=== PATIENT | male | born 1980 | race Caucasian/White ===

== ENCOUNTER 2017-11-18 21:37 | Inpatient (IN) | payer SELFPAY ==
[~2017-11-18 21:37] MED LIST: ISOVUE-370 76%-LOCM 1 ML ONE
[2017-11-18] MEDS ORDERED: Ibuprofen 200 MG TAB ONE (21:47)
[2017-11-18] MEDS ORDERED: Clindamycin/D5W 900 mg/50 ml Premix Bag ONE (22:24)
--- NOTE | 2017-11-18 22:41 | CT ---
CT OF THE NECK WITH IV CONTRAST 11/18/17 COMPARISON: None. HISTORY: Oral infection, tongue swelling, dysphagia, sore throat. TECHNIQUE: Serial axial CT imaging obtained at 2.5 mm intervals from the skull base through the lung apices with IV contrast. Coronal and sagittal reformatted imaging obtained. FINDINGS: The visualized lung apices are unremarkable. The retroantral fat and the parapharyngeal fat appears clear bilaterally. The parotid and submandibul ar glands appear unremarkable as well. The tonsillar pillars appear grossly unremarkable. There is mild enlargement of the lingual tonsils. The epiglottis and pre-epiglottic fat appears unremarkable. No evidence for a tonsillar/peritonsillar abscess. There is mild soft tissue prominence in the glossotonsillar sulcus on the right with no dis crete mass lesion or fluid collection. This could be related to a degree of edema in the right glosso tonsillar sulcus. Clinical correlation is required. The thyroid gland, thyroid cartilage, hyoid bone, cricoid cartilage, and level of the glottis appears unremarkable. Imaged lung apices are unremarkabl e. The vascular structures of the neck appear patent. Multiple mildly prominent lymph nodes are seen within level IIA and level V bilaterally, which may be reactive in nature. Osseous structures demonst rate no acute findings. IMPRESSION: Mild soft tissue prominence in the right glossotonsillar sulcus as detailed above. No evidence for ab scess. Mild beto prominence within the neck bilaterally is presumably reactive in nature and there i s prominence of the lingual tonsillar tissues, which may be reactive as well. Followup direct visuali zation in the region of the right glossotonsillar sulcus and/or followup imaging of the neck with CT suggested if symptoms persist. POS: [facility]
--- NOTE | 2017-11-19 00:13 | PDOC.FPRHP ---
- History of Present Illness Chief Complaint: sore throat History of Present Illness: 37 yo M w/o significant PMH presents for evaluation of sore throat and difficulty swallowing. Pt reports symptoms have been present for approx 1-2 days. Also complains of fever. Denies sob, difficulty breathing, trismus. Does report some tongue swelling. Pt had a CT performed in the ER for concern of vesta angina which was negative. He was given decadron, clinda and vanc omycin with some relief of symptoms. On evaluation the pt was sleeping and tolerating secretions without any evidence of respiratory compromise. ED Course: clinda, vancomycin - Allergies/Adverse Reactions Allergies Allergy/AdvReac Type Severity Reaction Status Date / Time No Known Allergies Allergy Unverified 11/19/17 01:15 - Home Medications Medication Instructions Recorded Confirmed Type No Known [No Known] 11/19/17 11/19/17 History - History PMHx:None PSHx: None FHx: Cancer, "fluid on her lungs" Social: 1/2 PPD smoker since age 16 - Review of Systems General: reports: fever/chills Eyes: denies: vision changes ENT: denies: nasal congestion, rhinorrhea Respiratory: denies: cough, congestion, shortness of breath Cardiovascular: denies: chest pain, palpitation Gastrointestinal: denies: nausea, vomiting, diarrhea, constipation, abdominal pain Skin: denies: rashes Musculoskeletal: denies: pain, tenderness, arthritis/arthralgias Neurological: denies: numbness, syncope - Vital signs BP: 126/78 HR: 97 RR: 20 Tmax: 102.7 Pox: 98% on RA Wt: 92Kg - Physical Exam Constitutional: NAD HEENT: normocephalic and atraumatic, PERRLA, EOMI, MMM, good dention, other ( edematous tongue worse on right, conjunctival icterus) Neck: supple, FROM, trachea midline, no JVD, other (cervical adenopathy) Heart: RRR, normal S1/S2, no murmurs/rubs/gallops, pulses present, no edema Lungs: CTAB, no respiratory distress, good air movement, no rales/rhonchi Abdomen: soft, non-tender, bowel sounds present, no masses/distention Musculoskeletal: normal structure, normal tone Neurological: no focal deficit Skin: no rash/lesions, capillary refill <2 seconds Heme/Lymphatic: no unusual bruising or bleeding, no petechia FMR H&P: Results - Labs Result Diagrams: 11/19/17 04:59 11/19/17 04:59 - Radiology Interpretation CT scan - head Status: report reviewed by me (glossotonsillar crypt inflammation w/o evidence of abscess) Chest x-ray Status: report reviewed by me (NAD) FMR H&P: A/P - Problem List (1) Sepsis Current Visit: Yes Status: Acute Code(s): A41.9 - SEPSIS, UNSPECIFIED ORGANISM (2) Transaminitis Current Visit: Yes Status: Acute Code(s): R74.0 - NONSPEC ELEV OF LEVELS OF TRANSAMNS & LACTIC ACID DEHYDRGNSE (3) CAIO (acute kidney injury) Current Visit: Yes Status: Acute Code(s): N17.9 - ACUTE KIDNEY FAILURE, UNSPECIFIED (4) Microcytic anemia Current Visit: Yes Status: Acute Code(s): D50.9 - IRON DEFICIENCY ANEMIA, UNSPECIFIED - Plan 1. Sepsis 2/2 Acute pharyngitis (bacterial vs viral) - CT neck negative for Vesta's angina - Will start Vanc and Zosyn for imperic coverage - Throat culture pending - REGINALD BOUCHERL - LR @ [facility] w/ strict I/O's - PRN tyelnol for fever control 2. Elevated LFT's - Concern for underlying Hepatitis vs steatosis w/ jaundice noted on exam - Will obtain RUQ-U/S for further eval - Check Hep C, Hep B, RPR, and HIV 3. Pre-renal CAIO - Unsure if pt's baseline but ratio >10 for BUN/Cr - Will give IVF and repeat BMP in the AM 4. Microcytic Anemia - Will check iron studies, FOBT, and obtain retic count, haptoglobin, and peripheral smear Disposition/LOS: stable, >/= 2 days FMR H&P: Upper Level - Pertinent history 37 y/o M w/ no sig. PMHx presents for evaluation of tongue swelling and throat pain over the past 1-2 days. Reports that his throat started hurting yesterday, and he noticed that his tongue felt like it was swelling. Associated w/ Temp to 102 degF and dysphagia. No prior episodes of similar sxs. Reports that it feels like the swelling has gone down a bit since he got steroids at the outside ER. Denies any CP, SOB at this time. CT soft tissue neck obtained in ER showing likely mild nodular prominences within the neck bilaterally likely reactive in nature w/ prominance of the lingual tonsillar tissues. - Pertinent findings Vital Signs BP 107/69 HR 77 RR 16 O2sat 99 RA Temp 97.6 DegF Labs WBC 19.6 Hgb 10.9 MCV 63.1 Plt 142 BUN [address] soft-tissue neck as noted in HPI PE: Gen: Resting in bed comfortably in NAD HEENT: Mallm-matt 4, shotty anterior cervical adenopathy. Slightly yellow discoloration noted r-subligual area Cards: RRR, no murmur Pulm: CTA-B/l no wheezes or rales Abd: Soft, NTTP BSx4 Neuro: Moves all 4 ext Skin: Diffuse jaundiced appearing w/ noted tatoos on UE's - Plan Date/Time: 11/19/17 0013 I, B. Reji Yun MD, have evaluated this patient and agree with findings/plan as outlined by management internship resident. Pertinent changes/additions are listed here. 37 y/o M w/ 1. Sepsis 2/2 Acute pharyngitis (bacterial vs viral) - CT neck negative for Vesta's angina - Will start Vanc and Zosyn for imperic coverage - Throat culture pending - LA WNL - LR @ [facility] w/ strict I/O's - PRN tyelnol for fever control 2. Elevated LFT's - Concern for underlying Hepatitis vs steatosis w/ jaundice noted on exam - Will obtain RUQ-U/S for further eval - Check Hep C, Hep B, RPR, and HIV 3. Pre-renal CAIO - Unsure if pt's baseline but ratio >10 for BUN/Cr - Will give IVF and repeat BMP in the AM 4. Microcytic Anemia - Will check iron studies, FOBT, and obtain retic count, haptoglobin, and peripheral smear Attending Addendum - Attending Addendum Date/Time: 11/19/17 1056 I personally evaluated the patient and discussed the management with Dr. Saleh. I agree with the History, Examination, Assessment and Plan documented above with any addition or exceptions noted below.
[2017-11-19 01:19] VITALS: BMI 27.3
[2017-11-19] MEDS ORDERED: Acetaminophen 325 MG TAB PO PRN (01:24)
[2017-11-19] MEDS ORDERED: Ondansetron HCl/PF 4 MG/2 ML Vial IVP PRN (01:24)
[2017-11-19] MEDS ORDERED: Ondansetron ODT 4 MG TAB SL PRN (01:24)
[2017-11-19] MEDS ORDERED: Calcium Carbonate 500 MG ChewTAB PO PRN (02:32)
[2017-11-19] MEDS ORDERED: Sodium Chloride 0.9% 1,000 ML IV SCH (02:45)
[2017-11-19] MEDS: Lactated Ringer's 1,000 ML IV SCH ×3 (04:33→22:02)
[2017-11-19 05:29] LABS: #Basophils 0.3 thou/uL (0.0-0.2); #Lymphocytes 1.6 thou/uL (1.20-3.40); #Monocytes 0.5 thou/uL (0.11-0.59); #Neutrophils 9.6 thou/uL (1.40-6.50); %Basophils 2.9 % (0.0-1.0); %Eosinophils 0.1 % (0.0-10.0); %Monocytes 3.9 % (0.0-10.0); %Neutrophils 80.1 % (42.0-75.0); Hemoglobin 10.7 g/dL (14.0-18.0); Mean Corpuscular HGB CONC 32.7 g/dL (32.0-36.0); Mean Corpuscular Hemoglobin 20.8 pg (27.0-31.0); Mean Corpuscular Volume 63.6 fl (80.0-94.0); Mean Platelet Volume 7.8 fL (7.4-10.4); Platelet Count 124 thou/uL (130-400); RBC Distribution Width 15.1 % (11.5-14.5); Red Blood Cell (RBC) Count 5.16 mill/uL (4.70-6.10)
[2017-11-19] MEDS: Piperacillin/Tazobactam 4.5 GM in Sodium Chloride 0.9% 100 ML IVPB SCH ×4 (05:36→22:49)
[2017-11-19 05:48] LABS: ALT (SGPT) 223 U/L (8-55); AST (SGOT) 152 U/L (5-34); Albumin 3.7 g/dL (3.5-5.0); Alkaline Phosphatase 84 U/L (40-150); Anion Gap 11 mmol/L (10-20); BUN (Urea Nitrogen) 25 mg/dL (8.9-20.6); Bilirubin, Total 2.3 mg/dL (0.2-1.2); Calc. Creatinine Clearance 158 mL/min (70-130); Calcium 8.8 mg/dL (7.8-10.44); Carbon Dioxide 24 mmol/L (22-29); Chloride 103 mmol/L (98-107); Estimated GFR-MDRD Greater than 90; Globulin 3.6 g/dL (2.4-3.5); Glucose 165 mg/dL (70-105); Iron 28 ug/dL (65-175); Potassium 4.3 mmol/L (3.5-5.1); Protein, Total 7.3 g/dL (6.0-8.3); Sodium 134 mmol/L (136-145); Transferrin, Serum 175 mg/dL (174-364)
[2017-11-19] MEDS ORDERED: Clindamycin/D5W 900 MG in Premix Bag 1 BAG IVPB SCH (06:00)
[2017-11-19 06:04] LABS: Syphilis Antibody Nonreactive (Nonreactive); Syphilis Antibody Index 0.07 S/CO (<1.00 Non-Reactive)
[2017-11-19 06:14] LABS: HBSAB Concentration 0.54 mIU/mL; Hep B Surf AB Non-Reactive (NonReactive); Hep B Surf Ag Non-Reactive S/CO (NonReactive)
[2017-11-19 06:41] LABS: Ferritin 4831.11 ng/mL (22-322)
[2017-11-19 07:14] LABS: Hep C IgG Ab Reflex HepC Qnt (NonReactive)
[2017-11-19 07:19] LABS: Hep C Index 10.76 S/CO (0-0.79)
[2017-11-19 08:09] LABS: Reflex for Review?? YES
[2017-11-19 08:11] LABS: Reticulocyte Count 4.7 % (0.5-1.5)
--- NOTE | 2017-11-19 08:58 | ULT ---
GALLBLADDER ULTRASOUND: Date: 11/19/17 HISTORY: Right upper quadrant pain. FINDINGS: Real-time imaging of the right upper quadrant demonstrates a normal appearing gallbladder. The common duct is 4.0 mm. Visualized liver parenchyma is unremarkable. Technologist reports a negative ultraso und Brown's sign. The pancreas is fairly well imaged and unremarkable. Right kidney is normal in size and not obstructe d. IMPRESSION: Unremarkable gallbladder ultrasound. POS: [facility]
[2017-11-19 10:32] LABS: Amphetamine Detected (NotDetected); Barbiturates Screen Not Detected (NotDetected); Benzodiazepine Screen Not Detected (NotDetected); Cocaine Metabolite Screen Not Detected (NotDetected); Medtox Control Line Valid? VALID (VALID); Medtox Reader # READER 1; Methadone Not Detected (NotDetected); Methamphetamine Detected (NotDetected); Opiate Screen Not Detected (NotDetected); Oxycodone Screen Not Detected (NotDetected); Phencyclidine (PCP) Not Detected (NotDetected); THC/Cannabinoid Screen Not Detected (NotDetected); Tricyclic Screen Not Detected (NotDetected)
[2017-11-19] MEDS: Vancomycin HCl 1.5 GM in Sodium Chloride 0.9% 250 ML 300 ML IVPB SCH ×2 (10:53→22:49)
[2017-11-19] MEDS: Dexamethasone 4 mg/ml Vial SLOW IVP SCH ×2 (10:53→22:02)
[2017-11-19] MEDS ORDERED: Ketorolac Tromethamine 30 MG/ML VIAL IVP SCH (21:00)
[2017-11-20 04:59] LABS: #Lymphocytes 1.8 thou/uL (1.20-3.40); #Monocytes 0.8 thou/uL (0.11-0.59); #Neutrophils 10.3 thou/uL (1.40-6.50); %Basophils 0.1 % (0.0-1.0); %Eosinophils 0.1 % (0.0-10.0); %Lymphocytes 13.6 % (21.0-51.0); %Monocytes 6.2 % (0.0-10.0); Hemoglobin 9.8 g/dL (14.0-18.0); Mean Corpuscular HGB CONC 31.8 g/dL (32.0-36.0); Mean Corpuscular Hemoglobin 20.6 pg (27.0-31.0); Mean Corpuscular Volume 64.7 fl (80.0-94.0); Mean Platelet Volume 7.8 fL (7.4-10.4); Platelet Count 143 thou/uL (130-400); RBC Distribution Width 15.3 % (11.5-14.5); Red Blood Cell (RBC) Count 4.77 mill/uL (4.70-6.10); White Blood Cell (WBC) Count 12.9 thou/uL (4.8-10.8)
[2017-11-20] MEDS: Piperacillin/Tazobactam 4.5 GM in Sodium Chloride 0.9% 100 ML IVPB SCH ×3 (05:08→17:24)
[2017-11-20 05:47] LABS: ALT (SGPT) 215 U/L (8-55); AST (SGOT) 155 U/L (5-34); Albumin 3.3 g/dL (3.5-5.0); Alkaline Phosphatase 75 U/L (40-150); Anion Gap 11 mmol/L (10-20); BUN (Urea Nitrogen) 26 mg/dL (8.9-20.6); Bilirubin, Total 1.6 mg/dL (0.2-1.2); Calc. Creatinine Clearance 162 mL/min (70-130); Carbon Dioxide 24 mmol/L (22-29); Chloride 108 mmol/L (98-107); Estimated GFR-MDRD Greater than 90; Globulin 3.1 g/dL (2.4-3.5); Glucose 156 mg/dL (70-105); Potassium 4.6 mmol/L (3.5-5.1); Protein, Total 6.4 g/dL (6.0-8.3); Sodium 138 mmol/L (136-145)
[2017-11-20 06:03] LABS: HIV (1/2) Antibody/Antigen Non-Reactive (NonReactive)
--- NOTE | 2017-11-20 06:30 | PDOC.FM ---
- Subjective Subjective: Aaron Gallardo seen at bedside this morning. He is feeling better and he feels like the tongue swelling has gone down. He denies any fevers, chills, difficulty breathing, states that his pain is well-controlled. He is tolerating PO fluid and solid food. - Objective MAR Reviewed: Yes Vital Signs & Weight: Vital Signs (12 hours) Temp Pulse Resp BP Pulse Ox 11/19/17 21:00 98.3 F 75 18 112/69 98 11/19/17 19:49 98.3 F 75 18 98 Weight Weight 91.58 kg I&O: 11/18/17 11/19/17 11/20/17 06:59 06:59 06:59 Intake Total 440 2940 Balance 440 2940 Result Diagrams: 11/20/17 04:16 11/20/17 04:16 Radiology Reviewed by me: Yes <Jesus Kuhn - Last Filed: 11/20/17 08:20> - Objective Vital Signs & Weight: Vital Signs (12 hours) Temp Pulse Resp BP BP Pulse Ox 11/21/17 07:50 97.9 F 52 L 16 158/83 H 93 L 11/20/17 20:00 98.1 F 76 16 119/74 97 Weight Weight 91.58 kg I&O: 11/20/17 11/21/17 11/22/17 06:59 06:59 06:59 Intake Total 2940 3515 Balance 2940 3515 Result Diagrams: 11/21/17 04:36 11/21/17 04:36 <Renee Paula - Last Filed: 11/21/17 07:59> Phys Exam - Physical Examination Constitutional: NAD HEENT: moist MMs decreased swelling of tongue Neck: no JVD, supple, full ROM Respiratory: no wheezing, no rales, no rhonchi, clear to auscultation bilateral Cardiovascular: RRR, no significant murmur, no rub Gastrointestinal: soft, non-tender, no distention Musculoskeletal: no edema, pulses present Neurological: non-focal, normal sensation, moves all 4 limbs Psychiatric: normal affect, A&O x 3 Skin: no rash, normal turgor <Jesus Kuhn - Last Filed: 11/20/17 08:20> Dx/Plan (1) Sepsis Code(s): A41.9 - SEPSIS, UNSPECIFIED ORGANISM Status: Acute (2) CAIO (acute kidney injury) Code(s): N17.9 - ACUTE KIDNEY FAILURE, UNSPECIFIED Status: Acute (3) Microcytic anemia Code(s): D50.9 - IRON DEFICIENCY ANEMIA, UNSPECIFIED Status: Acute (4) Transaminitis Code(s): R74.0 - NONSPEC ELEV OF LEVELS OF TRANSAMNS & LACTIC ACID DEHYDRGNSE Status: Acute - Plan Plan: 1. Sepsis 2/2 Acute pharyngitis (bacterial vs viral) - CT neck negative for Kobe's angina - Will start Vanc and Zosyn for empiric coverage - Throat culture: neg for Group A strep - LA WNL - LR @ [facility] w/ strict I/O's - PRN tylenol for fever control 2. Elevated LFT's - Concern for underlying Hepatitis vs steatosis w/ jaundice noted on exam - RUQ US showed normal liver parenchyma - RPR, HIV and Hep B neg - Pending Hep C studies 3. Pre-renal CAIO - Unsure if pt's baseline but ratio >10 for BUN/Cr - Will give IVF and repeat BMP in the AM 4. Microcytic Anemia - Elevated ferritin, likely 2/2 acute phase reactant - Fe was low - Retic index about 2.4 - pending FOBT <Jesus Kuhn - Last Filed: 11/20/17 08:20> Attending Addendum - Attending Addendum Date/Time: 11/03/17 9514 I personally evaluated the patient and discussed the management with Dr. Soares and Dr. Kuhn I agree with the History, Examination, Assessment and Plan documented above with any addition or exceptions noted below. 37 yo healthy male admitted for severe tosilloglossal pharyngitis. Improving. No airway compromise. Will continue steroids and IV antibiotics for next 48 hours. Will switch to PO and like d/c tomorrow. ABrayMD <Renee Paula - Last Filed: 11/21/17 07:59>
[2017-11-20 10:46] LABS: Vancomycin, Trough 7.2 ug/mL
[2017-11-20] MEDS ORDERED: Chloraseptic Spray 180 ml Bottle PO PRN (11:06)
[2017-11-20] MEDS: Lactated Ringer's 1,000 ML IV SCH ×2 (12:06→17:25)
[2017-11-20] MEDS ORDERED: VANCOMYCIN IVPB PRN (12:06)
[2017-11-20] MEDS: Dexamethasone 4 mg/ml Vial SLOW IVP SCH (12:06)
[2017-11-20] MEDS: Vancomycin HCl 1.5 GM in Sodium Chloride 0.9% 250 ML 300 ML IVPB SCH ×3 (12:30→20:30)
[2017-11-20] MEDS: Ferrous Sulfate 325 MG TAB PO SCH (17:24)
[2017-11-21] MEDS: Dexamethasone 4 mg/ml Vial SLOW IVP SCH ×2 (00:02→14:03)
[2017-11-21] MEDS: Piperacillin/Tazobactam 4.5 GM in Sodium Chloride 0.9% 100 ML IVPB SCH ×2 (00:02→05:20)
[2017-11-21] MEDS: Lactated Ringer's 1,000 ML IV SCH ×2 (02:59→14:02)
[2017-11-21 05:12] LABS: #Lymphocytes 1.9 thou/uL (1.20-3.40); #Monocytes 0.6 thou/uL (0.11-0.59); #Neutrophils 6.8 thou/uL (1.40-6.50); %Basophils 0.2 % (0.0-1.0); %Eosinophils 0.4 % (0.0-10.0); %Lymphocytes 20.7 % (21.0-51.0); %Monocytes 5.9 % (0.0-10.0); %Neutrophils 72.9 % (42.0-75.0); Hemoglobin 9.8 g/dL (14.0-18.0); Mean Corpuscular Volume 65.5 fl (80.0-94.0); Mean Platelet Volume 11.8 fL (7.4-10.4); Platelet Count 154 thou/uL (130-400); RBC Distribution Width 15.4 % (11.5-14.5); Red Blood Cell (RBC) Count 4.68 mill/uL (4.70-6.10); White Blood Cell (WBC) Count 9.3 thou/uL (4.8-10.8)
[2017-11-21 05:36] LABS: ALT (SGPT) 210 U/L (8-55); AST (SGOT) 131 U/L (5-34); Albumin 3.2 g/dL (3.5-5.0); Alkaline Phosphatase 76 U/L (40-150); Anion Gap 7 mmol/L (10-20); BUN (Urea Nitrogen) 15 mg/dL (8.9-20.6); Bilirubin, Total 1.1 mg/dL (0.2-1.2); Calc. Creatinine Clearance 175 mL/min (70-130); Calcium 8.5 mg/dL (7.8-10.44); Carbon Dioxide 28 mmol/L (22-29); Chloride 107 mmol/L (98-107); Estimated GFR-MDRD Greater than 90; Globulin 3.2 g/dL (2.4-3.5); Glucose 123 mg/dL (70-105); Potassium 4.2 mmol/L (3.5-5.1); Protein, Total 6.4 g/dL (6.0-8.3); Sodium 138 mmol/L (136-145)
[2017-11-21] MEDS: Vancomycin HCl 1.5 GM in Sodium Chloride 0.9% 250 ML 300 ML IVPB SCH (05:45)
--- NOTE | 2017-11-21 06:27 | PDOC.FM ---
- Subjective Subjective: Aaron Gallardo is seen at bedside this morning. There were no acute events overnight. He has no complaints this morning. States that he still feels like there is some swelling but he has had continued improvement, he is able to tolerate PO intake. - Objective MAR Reviewed: Yes Vital Signs & Weight: Vital Signs (12 hours) Temp Pulse Resp BP Pulse Ox 11/20/17 20:00 98.1 F 76 16 119/74 97 Weight Weight 91.58 kg I&O: 11/19/17 11/20/17 11/21/17 06:59 06:59 06:59 Intake Total 440 2940 3515 Balance 440 2940 3515 Result Diagrams: 11/21/17 04:36 11/21/17 04:36 <Jesus Kuhn - Last Filed: 11/21/17 07:25> - Objective Vital Signs & Weight: Vital Signs (12 hours) Temp Pulse Resp BP Pulse Ox 11/21/17 08:00 97.9 F 52 L 16 93 L 11/21/17 07:50 97.9 F 52 L 16 158/83 H 93 L Weight Weight 91.58 kg I&O: 11/20/17 11/21/17 11/22/17 06:59 06:59 06:59 Intake Total 2940 3515 Balance 2940 3515 Result Diagrams: 11/21/17 04:36 11/21/17 04:36 <Renee Paula - Last Filed: 11/21/17 14:38> Phys Exam - Physical Examination Constitutional: NAD HEENT: moist MMs edematous tongue, improvement from yesterday posterior pharynx more visible today Neck: no JVD, supple, full ROM Respiratory: no wheezing, no rales, no rhonchi, clear to auscultation bilateral Cardiovascular: RRR, no significant murmur Gastrointestinal: soft, non-tender, no distention Musculoskeletal: no edema, pulses present Neurological: non-focal, normal sensation, moves all 4 limbs Psychiatric: normal affect, A&O x 3 Skin: no rash, normal turgor <Jesus Kuhn - Last Filed: 11/21/17 07:25> Dx/Plan (1) Sepsis Code(s): A41.9 - SEPSIS, UNSPECIFIED ORGANISM Status: Resolved (2) CAIO (acute kidney injury) Code(s): N17.9 - ACUTE KIDNEY FAILURE, UNSPECIFIED Status: Resolved (3) Microcytic anemia Code(s): D50.9 - IRON DEFICIENCY ANEMIA, UNSPECIFIED Status: Acute (4) Transaminitis Code(s): R74.0 - NONSPEC ELEV OF LEVELS OF TRANSAMNS & LACTIC ACID DEHYDRGNSE Status: Acute - Plan Plan: 1. Sepsis 2/2 Acute pharyngitis (bacterial vs viral) - CT neck negative for Kobe's angina - Will discontinue Vanc and Zosyn and transition to PO clindamycin - Throat culture: neg for Group A strep - PRN tylenol for fever control - Anticipate discharge today 2. Elevated LFT's - Concern for underlying Hepatitis vs steatosis w/ jaundice noted on exam - RUQ US showed normal liver parenchyma - RPR, HIV and Hep B neg - Pending Hep C studies 3. Pre-renal CAIO-resolved - Unsure if pt's baseline but ratio >10 for BUN/Cr - patient now tolerating PO normally, will discontinue IVFs 4. Microcytic Anemia - Elevated ferritin, likely 2/2 acute phase reactant - Fe was low - Retic index about 2.4 - pending FOBT <Jesus Kuhn - Last Filed: 11/21/17 07:25> Attending Addendum - Attending Addendum Date/Time: 11/21/17 7536 I personally evaluated the patient and discussed the management with Dr. Soares and Dr. Kuhn I agree with the History, Examination, Assessment and Plan documented above with any addition or exceptions noted below. 37 yo healthy male admitted for severe tosilloglossal pharyngitis. Switch to PO antibiotics and d/c to home. Continues to improve. MishaMD <Renee Paula - Last Filed: 11/21/17 14:38>
[2017-11-21] MEDS: Clindamycin 150 MG CAP PO SCH ×2 (07:16→15:14)
[2017-11-21 07:50] VITALS: BP 158/83; TEMP 97.9
[2017-11-21] MEDS: Ferrous Sulfate 325 MG TAB PO SCH (09:39)
[2017-11-21 12:15] LABS: HCV log10 5.575 (.); Hep C PCR-Quant 376000 IU/mL (.)
--- NOTE | 2017-11-22 04:07 | DIS-2 ---
DATE OF ADMISSION: 11/19/2017 DATE OF DISCHARGE: 11/21/2017 RESIDENT: Jesus Kuhn MD ADMITTING ATTENDING: Paresh Connelly MD DISCHARGE ATTENDING: Renee Paula MD CONSULTATIONS: None. PROCEDURES: 1. A CT of the neck with IV contrast on 11/18/2017: Impression: Mild soft tissue prominence in the right glossal tonsillar sulcus. No evidence for abscess. Mild beto prominence within the neck dominik aterally, it is presumably reactive in nature and there is prominence in the lingual tonsillar tissue s which may be reactive as well. 2. Abdominal ultrasound on 11/19/2017: Impression: Unremarkable gallbladder ultrasound. PRIMARY DIAGNOSES: 1. Sepsis secondary to tonsillar glossal pharyngitis. 2. New diagnosis of hepatitis C. SECONDARY DIAGNOSES: 1. Transaminitis. 2. Hyperbilirubinemia. 3. History of IV drug use. 4. Microcytic anemia. 5. Leukocytosis. DISCHARGE MEDICATIONS: 1. Clindamycin 300 mg p.o. q.8 hours for 7 days. 2. Ferrous sulfate 325 mg p.o. b.i.d. with meals. HISTORY OF PRESENT ILLNESS AND HOSPITAL COURSE: Aaron Gallardo is a 37-year-old male without signific ant past medical history, who presented to the ED with sore throat and difficulty swallowing. Sympto ms have been present for approximately 1-2 days. He also complained of fever. Denies any shortness of breath, difficulty breathing, or trismus. He does also report some tongue swelling. His symptoms got so bad that he was nervous that somehow it is going to get so large, it was going to block his a irway. Patient had CT performed in the ER for concern of Kobe's angina which was negative. He was given Decadron, clindamycin, and vancomycin in the ED and had some relief of his symptoms. On initi al encounter, the patient was comfortable, tolerating secretions well and showed no evidence of respi ratory compromise. Initial labs, white blood cell count 12.0, hemoglobin 10.7, hematocrit 32.8, plat elets 124,000. Sodium 134, glucose 165. Patient was admitted for sepsis secondary to acute pharyngi tis. CT of the neck was negative, showed no abscess. IV vancomycin and Zosyn were started for empir ic coverage. Throat cultures were taken and were negative. The patient had hepatic studies done for elevated LFTs and he also endorsed history of IV drug use. He was negative for hepatitis B, RPR, an d HIV, hepatitis C antibodies were positive with reflex hepatitis C quant high. HCV, RNA, PCR were p ending. Hepatitis A antibody was also positive. The patient's symptoms continued to improve and his swelling of his tongue went down. The patient was tolerating p.o. fine on 11/21/2017 and IV antibio tics were switched to p.o. clindamycin for which the patient was instructed to continue for 7 more da ys here was in agreement. The patient also was advised to follow up with the primary care provider f or further workup of his possible hepatitis C. The patient expressed understanding and stated that h e would follow up with primary care provider as soon as he could. The patient was otherwise stable f or discharge on 11/21/2017. DISPOSITION: Stable. Patient should do well if he continues antibiotics and follows up with primary care provider so that he can have further workup of possible new diagnosis of hepatitis C. DISCHARGE INSTRUCTIONS: 1. Location: Home. 2. Diet: No restrictions. 3. Activity: As tolerated. 4. Followup: Follow up with primary care provider within 1 week.
== END 2017-11-21 15:16 | disposition home or self-care (01) | DRG 872 ==
LOC: ERS 21:37 → T4-B 11-19 00:28
PROVIDERS: ADMIT Family Medicine; ATTEND Family Medicine
DX: A41.9 Sepsis, unspecified organism (principal); N17.9 Acute kidney failure, unspecified; J02.8 Acute pharyngitis due to other specified organisms; B19.20 Unspecified viral hepatitis C without hepatic coma; E80.6 Other disorders of bilirubin metabolism; R74.0 Nonspecific elevation of levels of transaminase and lactic acid dehydrogenase [LDH]; D50.9 Iron deficiency anemia, unspecified; J03.90 Acute tonsillitis, unspecified
CPT/HCPCS: 36415; 70491; 76705; 80053; 80202; 80306; 82728; 83010; 83540; 84466; 85025; 85046; 85060; 86706; 86708; 86780; 86803; 87081; 87340; 87389; 87430; 87522; 96365; 96367; A4216; J1100; J1885; J2543; J3370; J3490; J7050

== ENCOUNTER 2019-02-13 13:30 | Emergency (ER) | payer SELFPAY ==
--- NOTE | 2019-02-13 14:31 | CT ---
HEAD CT WITHOUT CONTRAST: Date: 02/13/19 HISTORY: Trauma. LONG-TERM 2 days ago. Swelling into the eyes, new onset this morning. FINDINGS: No parenchymal hemorrhage or extra-axial hematoma. No midline shift. Basilar cisterns are patent. Bra in volume is age-appropriate. Cortical klein-white matter differentiation is preserved. No evidence of hydrocephalus. Calvarium is intact. Adequate aeration of the sinuses and mastoid air cells. There is bilateral periorbital and preseptal soft tissue swelling along with soft tissue swelling inv olving the anterior scalp. Small foci of air attenuation in the anterior scalp noted. Skin lynne ar e identified along the anterior scalp. Soft tissue swelling and air presumed to be traumatic. There d oes appear to be edema and induration involving the subcutaneous fat overlying the left and right mas ticator space and parotid glands. IMPRESSION: 1. No intracranial post-traumatic sequelae. 2. Post-traumatic changes in the soft tissues. Further evaluation with a postcontrast facial CT is r ecommended. POS: [facility]
--- NOTE | 2019-02-13 14:35 | CT ---
CERVICAL SPINE CT WITHOUT CONTRAST: DATE: 02/13/19 HISTORY: [facility] 2 days ago. New onset swelling. COMPARISON: CT cervical spine [facility] dated 02/10/19. FINDINGS: No craniocervical dissociation. Appropriate alignment of the lateral masses of C1 and C2, as well as the facets. Odontoid process is intact. Small amount of fluid anterior to the C4 vertebral body. There is irregularity and comminution involv ing the anterior inferior aspect of the C4 vertebral body suggesting an acute on chronic fracture. Re mainder of the cervical vertebra are unremarkable. There is no malalignment. Mild straightening of no rmal cervical lordosis may be due to patient position, muscle spasm, or cervical collar. Upper mediastinum and lung apices are unremarkable. Varying degrees of central canal stenosis and foraminal narrowing on the basis of degenerative change . Limited evaluation due to technique. IMPRESSION: Findings suggesting a fracture involving the anterior inferior aspect of C4 with associated mid preve rtebral soft tissue swelling. Correlate clinically. The possibility of acute on chronic process is ra ised. POS: [facility]
[2019-02-13] MEDS ORDERED: Ketorolac Tromethamine 60 MG/2 ML VIAL ONE (15:11)
[2019-02-13] MEDS ORDERED: HYDROcodone/Acetaminophen 5/325 mg Tablet ONE (15:11)
== END 2019-02-13 15:30 | disposition home or self-care (01) ==
LOC: ERS 13:30
DX: S12.300A Unspecified displaced fracture of fourth cervical vertebra, initial encounter for closed fracture (principal); S01.81XA Laceration without foreign body of other part of head, initial encounter; F17.210 Nicotine dependence, cigarettes, uncomplicated; V26 Motorcycle rider injured in collision with other nonmotor vehicle
CPT/HCPCS: 70450; 72125; 96372; J1885

== ENCOUNTER 2019-11-04 07:25 | Outpatient (CLI) | payer OTHER ==
[2019-11-04 18:47] LABS: SARS-CoV-2 MS2 Positive; SARS-CoV-2 N Gene Negative; SARS-CoV-2 S Gene Negative; SARS-CoV-2 orf1ab Negative
== END 2019-11-04 07:26 | disposition home or self-care (01) ==
LOC: LABBT 07:25
PROVIDERS: ATTEND Orthopaedic Surgery
DX: Z01.812 Encounter for preprocedural laboratory examination (principal); Z11.59 Encounter for screening for other viral diseases; S43.101A Unspecified dislocation of right acromioclavicular joint, initial encounter
CPT/HCPCS: 87635; U0003